=== PATIENT | female | born 1995 | race Caucasian/White ===

== ENCOUNTER 2018-04-25 20:56 | Emergency (ER) | payer BC ==
[2018-04-25] MEDS ORDERED: cefTRIAXone 1 GM, Lidocaine 1% 2.1 ML IM SCH ×2 (21:30)
--- NOTE | 2018-04-25 22:00 | EDM.PDOC ---
ED HPI GENERAL MEDICAL PROBLEM - General Chief Complaint: Upper Extremity Injury/Pain Stated Complaint: RIGHT HAND MIDDLE FINGER Time Seen by Provider: 04/25/18 21:18 Source of Information: Reports: Patient History Limitations: Reports: No Limitations - History of Present Illness INITIAL COMMENTS - FREE TEXT/NARRATIVE: This is a 23-year-old female. Onset of right middle finger swelling and pain around the nail. It is gotten worse and she comes to the ER for evaluation. She denies any hangnail and denies any drainage from the tip of her finger. On the radial side of the nail there is some swelling and purplish discoloration but no obvious abscess noted. It is very tender on palpation. The inflammation exist in the distal phalanx there is no red streaks up her finger. Right Upper 3-Middle finger Pain Score (Numeric/FACES): 8 - Related Data Allergies Allergy/AdvReac Type Severity Reaction Status Date / Time grass pollen Allergy Rash Verified 04/25/18 21:30 Sulfa (Sulfonamide Allergy Vomiting Verified 04/25/18 21:30 Antibiotics) Home Meds: Home Meds Cephalexin [Keflex] 500 mg PO Q8H #21 cap 04/25/18 [Rx] FLUoxetine HCl [Fluoxetine HCl] 1 tab PO DAILY 04/25/18 [History] Hydrocodone/Acetaminophen [Hydrocodon-Acetaminophen 5-325] 1 each PO Q6H PRN # 15 tablet 04/25/18 [Rx] LORazepam [Ativan] 0.5 mg PO Q4HR PRN 04/25/18 [History] traZODone HCl [Trazodone HCl] 50 mg PO BEDTIME PRN 04/25/18 [History] Past Medical History HEENT History: Reports: Impaired Vision Gastrointestinal History: Reports: Irritable Bowel Syndrome Musculoskeletal History: Reports: Fracture Neurological History: Reports: Concussion Psychiatric History: Reports: Anxiety, Depression, Other (See Below) Other Psychiatric History: Insomnia; eating disorder recovering Hematologic History: Reports: Iron Deficiency - Past Surgical History HEENT Surgical History: Reports: Tonsillectomy Other HEENT Surgeries/Procedures: Tear duct surgery GI Surgical History: Reports: Cholecystectomy Other GI Surgeries/Procedures: Sphincter surgery post-cholecystectomy Social & Family History - Family History Family Medical History: Noncontributory - Tobacco Use Smoking Status *Q: Never Smoker - Caffeine Use Caffeine Use: Reports: None - Recreational Drug Use Recreational Drug Use: No Review of Systems - Review of Systems Review Of Systems: See Below Constitutional: Denies: Chills, Fever Eyes: Reports: No Symptoms Ears: Reports: No Symptoms Nose: Reports: No Symptoms Mouth/Throat: Reports: No Symptoms Respiratory: Reports: No Symptoms Cardiovascular: Reports: No Symptoms GI/Abdominal: Reports: No Symptoms Genitourinary: Reports: No Symptoms Musculoskeletal: Reports: Other (As per HPI) Skin: Reports: Other (As per HPI) Neurological: Reports: No Symptoms Psychiatric: Reports: No Symptoms ED EXAM, GENERAL - Physical Exam Exam: See Below Exam Limited By: No Limitations General Appearance: Alert, WD/WN, No Apparent Distress Eye Exam: Bilateral Eye: Normal Inspection Ears: Normal External Exam Nose: Normal Inspection Throat/Mouth: Normal Inspection, Normal Lips, Normal Voice, No Airway Compromise Head: Normocephalic Neck: Supple Respiratory/Chest: No Respiratory Distress GI/Abdominal: Soft Back Exam: Full Range of Motion Extremities: Normal Range of Motion, Other (The right middle finger noted a paronychia with a developing swelling on the radial side of the nail, there is no obvious abscess since the infection is deep at this time I do not feel comfortable sticking a needle in it or opening it due to the depth of the swelling and it is not in the surface and there is no drainage) Neurological: Alert, Oriented Psychiatric: Normal Affect, Normal Mood Skin Exam: Warm, Dry Course - Vital Signs Last Recorded V/S: Last Vital Signs Temp 98 F 04/25/18 21:07 Pulse 66 04/25/18 21:07 Resp 16 04/25/18 21:07 BP 119/83 04/25/18 21:07 Pulse Ox 99 04/25/18 21:07 - Orders/Labs/Meds Orders: Active Orders 24 hr Category Date Time Status cefTRIAXone [Rocephin] 1 gm Med 04/25/18 21:30 Active Lidocaine 1% [Xylocaine 1%] 2.1 ml IM Q24H Medication Orders Ceftriaxone Sodium 1 gm/ (Lidocaine HCl 2.1 ml) 0 gm IM Q24H AYANA Last Admin: 04/25/18 21:40 Dose: 1 inj Meds: Medications Generic Name Dose Route Start Last Admin Trade Name Freq PRN Reason Stop Dose Admin Ceftriaxone Sodium 1 gm/ 0 gm 04/25/18 21:30 04/25/18 21:40 Lidocaine HCl 2.1 ml IM 1 inj Q24H AYANA Administration - Re-Assessments/Exams Free Text/Narrative Re-Assessment/Exam: 04/25/18 22:03 I instructed the patient to do warm soaks to that finger multiple times a day, get the Keflex and the pain medication tomorrow. I also indicated that if the abscess seems to come to the surface that she needs to be rechecked to open that abscess and shell it out once it is ripe. Departure - Departure Time of Disposition: 22:03 Disposition: Home, Self-Care 01 Condition: Good Clinical Impression: Paronychia of finger of right hand, Cellulitis of right middle finger - Discharge Information Prescriptions: Cephalexin [Keflex] 500 mg PO Q8H #21 cap Hydrocodone/Acetaminophen [Hydrocodon-Acetaminophen 5-325] 1 each PO Q6H PRN # 15 tablet PRN Reason: Pain Referrals: PCP,Not In Area [Primary Care Provider] - Additional Instructions: Take the antibiotics faithfully once you get them tomorrow and use the pain medication as needed, use warm soaks to that finger multiple times a day, if the abscess develops to the surface then very carefully opened up the blister to drain the abscess with clean instruments, if you don't feel comfortable opening up the abscess when it comes to the surface then follow-up at an urgent care center for them to open up the abscess if it develops, return to the ER if needed - My Orders Last 24 Hours: My Active Orders 04/25/18 21:30 cefTRIAXone [Rocephin] 1 gm Lidocaine 1% [Xylocaine 1%] 2.1 ml IM Q24H - Assessment/Plan Last 24 Hours: My Active Orders 04/25/18 21:30 cefTRIAXone [Rocephin] 1 gm Lidocaine 1% [Xylocaine 1%] 2.1 ml IM Q24H
== END 2018-04-25 22:14 | disposition home or self-care (01) ==
LOC: JD.ED 20:56
DX: L03.011 Cellulitis of right finger (principal); F41.9 Anxiety disorder, unspecified; F32.9 Major depressive disorder, single episode, unspecified; Z88.2 Allergy status to sulfonamides; Z91.09 Other allergy status, other than to drugs and biological substances
CPT/HCPCS: 96372; 99283; J0696